=== PATIENT | female | born 1950 ===

== ENCOUNTER 2018-03-02 14:29 | Emergency (ER) | payer MEDICARE, SELFPAY ==
[2018-03-02 14:35] VITALS: BP 152/75; PULSE 70; RESP 14; TEMP 36.7; O2SAT 98
--- NOTE | 2018-03-02 14:41 | DI.RAD.S_ITS ---
PROCEDURE: XR WRIST LT MIN 3V INDICATIONS: fall on out stretched arm. TECHNIQUE: 4 views of the wrist were acquired. COMPARISON: None. FINDINGS: Bones: There is a mildly displaced fracture of the distal radius with extension to the radiocarpal joint. There is slight depression of the articular surface with mild impaction. Fracture also extends to the distal radioulnar joint. Scaphoid view: The scaphoid appears intact. Soft tissues: No suspicious soft tissue calcifications. IMPRESSION: 1. Mildly impacted fracture of the distal radius extending to the radiocarpal and distal radioulnar joints. Dictated by: Lyle Mckeon M.D. on 03/02/2018 at 15:07 Approved by: Lyle Mckeon M.D. on 03/02/2018 at 15:08
--- NOTE | 2018-03-02 14:56 | PC.NURSE ---
Yellow metal ring removed from l 4th finger and given to
--- NOTE | 2018-03-02 14:57 | ED.UPPEXIN ---
HPI - Extremity Injury (Upper) <Sada Villegas PA-C - Last Filed: 03/02/18 17:41> General Chief Complaint: Extremity Injury, Upper Stated Complaint: FALL/HURT WRIST Time Seen by Provider: 03/02/18 14:57 Source: patient Mode of arrival: ambulatory Limitations: no limitations History of Present Illness HPI narrative: This generally healthy 68-year-old right-handed female tripped over a marker in a parking lot and fell forward onto her outstretched left wrist. She denies any other injury including head contusion, but has had wrist pain and immobility since. She states pain is better with her wrist on ice and not trying to move it. She denies any other complaints. Related Data Home Medications Medication Instructions Recorded Confirmed levothyroxine 50 mcg PO DAILY 03/02/18 03/02/18 Previous Rx's Medication Instructions Recorded hydrocodone-acetaminophen [[place]] 1 tab PO Q4-6H PRN #10 tab 03/02/18 ibuprofen 800 mg PO Q8H PRN #30 tab 03/02/18 ibuprofen 800 mg PO TID PRN #20 tab 03/02/18 Allergies Allergy/AdvReac Type Severity Reaction Status Date / Time No Known Drug Allergies Allergy Verified 03/02/18 14:38 Review of Systems <BRIGITTE Shelby Last Filed: 03/02/18 17:41> Review of Systems All systems reviewed & are unremarkable except as noted in HPI and below Exam <Sada Villegas PA-C - Last Filed: 03/02/18 17:41> Narrative Exam Narrative: GENERAL APPEARANCE: Patient sitting comfortably, in no distress. LUNGS: Clear to auscultation bilaterally. HEART: Rate and rhythm regular without murmur, normal S1 and S2, no S3 or S4. MUSCULOSKELETAL: Moderate left wrist effusion. There is no effusion over other left upper extremity joints. No tenderness over the shoulder, left upper arm, elbow, or forearm. She is tender over the wrist especially on the ulnar side. Will not attempt range of motion secondary to tenderness. She does not appear to have tenderness over the carpal bones or fingers, limited ROM secondary to tenderness NEUROVASCULAR: Left hand fingers are warm and pink, radial and ulnar pulses +, sensation grossly intact Initial Vital Signs Initial Vital Signs: Vital Signs Temperature 98.0 F 03/02/18 14:35 Pulse Rate 70 03/02/18 14:35 Respiratory Rate 14 03/02/18 14:35 Blood Pressure 152/75 H 03/02/18 14:35 Pulse Oximetry 98 03/02/18 14:35 <Robert Fish MD - Last Filed: 03/02/18 17:51> Initial Vital Signs Initial Vital Signs: Vital Signs Temperature 98.0 F 03/02/18 14:35 Pulse Rate 70 03/02/18 14:35 Respiratory Rate 14 03/02/18 14:35 Blood Pressure 152/75 H 03/02/18 14:35 Pulse Oximetry 98 03/02/18 14:35 Course <Sada Villegas PA-C - Last Filed: 03/02/18 17:41> Hospital Course: Spoke with Dr. Adhikari compensation and benefits manager for orthopedics and he reviewed xrays. Advised that patient can be placed in sugar tong splint and follow up with his office on Sunday. Patient is agreeable to staying in town with family and following up next week. Patient was placed in a sugar tong splint and reported this felt comfortable. Fingers are warm and pink and distal sensation intact following splinting. Orders Ordered: ED Orders 03/02/18 14:41 XR wrist LT min 3V Stat Discontinued Medications Hydrocodone Bitart/Acetaminophen ([place] 5/325) 1 tab PO NOW ONE Stop: 03/02/18 15:45 Last Admin: 03/02/18 15:47 Dose: 1 tab Ibuprofen (Advil) 800 mg PO NOW ONE Stop: 03/02/18 15:22 Last Admin: 03/02/18 15:27 Dose: 800 mg Vital Signs - 8 hr 03/02/18 14:35 03/02/18 17:16 Temperature 98.0 F Pulse Rate 70 81 Respiratory Rate 14 17 Blood Pressure 152/75 H Blood Pressure [Right Arm] 158/83 H Pulse Oximetry 98 98 <Robert Fish MD - Last Filed: 03/02/18 17:51> Orders Ordered: ED Orders 03/02/18 14:41 XR wrist LT min 3V Stat Discontinued Medications Hydrocodone Bitart/Acetaminophen ([place] 5/325) 1 tab PO NOW ONE Stop: 03/02/18 15:45 Last Admin: 03/02/18 15:47 Dose: 1 tab Ibuprofen (Advil) 800 mg PO NOW ONE Stop: 03/02/18 15:22 Last Admin: 03/02/18 15:27 Dose: 800 mg Vital Signs - 8 hr 03/02/18 14:35 03/02/18 17:16 Temperature 98.0 F Pulse Rate 70 81 Respiratory Rate 14 17 Blood Pressure 152/75 H Blood Pressure [Right Arm] 158/83 H Pulse Oximetry 98 98 MDM - Extremity Injury (Upper) <Sada Villegas PA-C - Last Filed: 03/02/18 17:41> Imaging Data wrist: Radiologist's impression: [address] [id number] XRay Report Signed Patient: PHONG QUINONEZ MR#: [id number] : 1950 Acct:[id number] Age/Sex: 68 / F Date of Service: 03/02/18 Loc: ED Accession Number: [id number] Procedure: XR wrist LT min 3V Ordering Provider: Sada Villegas P.A-C PROCEDURE: XR WRIST LT MIN 3V INDICATIONS: fall on out stretched arm. TECHNIQUE: 4 views of the wrist were acquired. COMPARISON: None. FINDINGS: Bones: There is a mildly displaced fracture of the distal radius with extension to the radiocarpal joint. There is slight depression of the articular surface with mild impaction. Fracture also extends to the distal radioulnar joint. Scaphoid view: The scaphoid appears intact. Soft tissues: No suspicious soft tissue calcifications. IMPRESSION: 1. Mildly impacted fracture of the distal radius extending to the radiocarpal and distal radioulnar joints. Dictated by: Lyle Mckeon M.D. on 03/02/2018 at 15:07 Approved by: Lyle Mckeon M.D. on 03/02/2018 at 15:08 Discharge Plan Departure Patient Disposition: Home, Self-Care Clinical Impression: Fracture of wrist Discharge Date/Time: 03/02/18 17:35 Interventions: ED Discharge Assessment Last Done: 03/02/18 17:35 Instructions: DI for Wrist Fracture, How to Take Care of Your Splint Activity Restrictions/Additional Instructions: Return if you have any acutely worsening symptoms, otherwise call the orthopedics office first thing on Sunday. Let them know that you have a fracture and that Dr. Adhikari called and told you to be seen by them Sunday or by Sunday. Continue Ibuprofen every 8 hours with food as needed for pain. You can take the hydrocodone/acetaminophen if needed for the next day or two but do not drive as it may make you sleepy Prescriptions: New ibuprofen 800 mg tablet 800 mg PO TID PRN (Reason: pain) Qty: 20 RF: 0 hydrocodone-acetaminophen [[place]] 5-325 mg tablet 1 tab PO Q4-6H PRN (Reason: wrist fx pain) Qty: 10 RF: 0 ibuprofen 800 mg tablet 800 mg PO Q8H PRN (Reason: pain) Qty: 30 RF: 0 No Action levothyroxine 50 mcg Capsule 50 mcg PO DAILY RF: 0 Referrals: Parvez Adhikari MD [Physician] - <Robert Fish MD - Last Filed: 03/02/18 17:51> Cosign ED Attending Cosignature Attestation: I was the attending of record and available in the ED. I attest to the documentation and agree with the assessment and plan.
[2018-03-02] MEDS: IBUPROFEN 400 MG TABLET 800 MG PO (15:27)
[2018-03-02] MEDS: HYDROCODONE/ACET 5/325 TABLET 1 TAB PO (15:47)
--- NOTE | 2018-03-02 16:57 | PC.NURSE ---
Splint applied but pt had excessive movement while it was placed and it may need to be resplinted.
[2018-03-02 17:16] VITALS: BP 158/83; PULSE 81; RESP 17; O2SAT 98
== END 2018-03-02 17:35 | disposition home or self-care (01) ==
PROVIDERS: Emergency Provider Internal Medicine
DX: S62.102A Fracture of unspecified carpal bone, left wrist, initial encounter for closed fracture (principal); W19.XXXA Unspecified fall, initial encounter
CPT/HCPCS: 29105; 73110; 99283